=== PATIENT | female | born 2005 | race Caucasian/White ===

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

== ENCOUNTER 2024-04-18 11:00 | Emergency (ER) | payer OTHER, SELFPAY ==
[2024-04-18 12:05] VITALS: BP 132/80; PULSE 126; RESP 18; TEMP 36.7; O2SAT 98
--- NOTE | 2024-04-18 13:15 | ED.HA ---
HPI - Headache General Chief Complaint: Headache <Sary Segundo PA-C - Last Filed: 04/18/24 13:20> Stated Complaint: headache <Sary Segundo PA-C - Last Filed: 04/18/24 13:20> Time Seen by Provider: 04/18/24 13:15 <Sary Segundo PA-C - Last Filed: 04/18/24 13:20> Focused HPI: Patient is a 18-year-old female who presents the ED with report of a migraine headache. Patient reports she woke up this morning with a slight headache, which has progressed throughout the day into a migraine. She does have history of migraines which have been similar in the past. States pain is mostly frontal currently. She reports she began vomiting today and has been unable to keep down any food or drink which prompted her to come in to be seen. She attempted to take Tylenol and ibuprofen today, but does not think she was able to keep these down. Denies dizziness, lightheadedness, vision changes, neck pain, fevers. GENERAL: Well-appearing, well-nourished, and in no acute distress. HEAD: Normocephalic, atraumatic. CHEST: Clear to auscultation. ?No respiratory distress. HEART: Regular rate and rhythm.? NEURO: ?Alert and oriented x3. Patient screened in triage and initial orders placed.? ?Additional care and disposition to be based upon?diagnostic testing and treatment. <Sary Segundo PA-C - Last Filed: 04/18/24 13:20> Source: patient <Sary Segundo PA-C - Last Filed: 04/18/24 13:20> Mode of arrival: ambulatory <Sary Segundo PA-C - Last Filed: 04/18/24 13:20> Limitations: no limitations <AZEB Navarro Last Filed: 04/18/24 13:20> History of Present Illness HPI Narrative: Agree with HPI <Jimy Sousa MD - Last Filed: 04/18/24 16:32> Related Data Allergies/Adverse Reactions: Allergies Allergy/AdvReac Type Severity Reaction Status Date / Time No Known Allergies Allergy Verified 04/18/24 12:08 <Sary Segunod PA-C - Last Filed: 04/18/24 13:20> Review of Systems Review of Systems: All systems reviewed & are unremarkable except as noted in HPI and below <Jimy Sousa MD - Last Filed: 04/18/24 16:32> Constitutional: Constitutional: Reports no additional constitutional complaints <Jimy Sousa MD - Last Filed: 04/18/24 16:32> Eyes: Eyes: Reports photophobia <Jimy Sousa MD - Last Filed: 04/18/24 16:32> Cardiovascular: Cardiovascular: Reports no additional cardiovascular complaints <Jimy Sousa MD - Last Filed: 04/18/24 16:32> Respiratory: Respiratory: Reports no additional respiratory complaints <Jimy Sousa MD - Last Filed: 04/18/24 16:32> Neurologic: Denies confusion, Reports headache(s), Denies focal weakness and Denies numbness <Jimy Sousa MD - Last Filed: 04/18/24 16:32> PMFSH Past Medical History Medical History: Medical History (Updated 04/18/24 @ 16:31 by Jimy Sousa MD) Family planning, Depo-Provera contraception monitoring/administration <Sary Segundo PA-C - Last Filed: 04/18/24 13:20> Surgical History Surgical History: Surgical History Portis teeth removed <Sary Segundo PA-C - Last Filed: 04/18/24 13:20> Social History Social History: Social History (Updated 01/02/23 @ 14:18 by Shawnee Newman MA) Smoking status: Never smoker Second hand tobacco smoke exposure: No Alcohol intake: never Substance use: never Substance use type: does not use Living arrangements: with family Occupation/Education: student Gender identity (if verbalized by the patient): Female Sexual Orientation (if Verbalized by the Patient): Straight or Heterosexual <AZEB Navarro Last Filed: 04/18/24 13:20> Exam Narrative: GENERAL: Well-appearing, well-nourished, and in no acute distress. HEAD: Normocephalic, atraumatic. EYES: PERRL and EOMI. ENT:
[2024-04-18] MEDS: diphenhydrAMINE HCl INJ 50 MG/ML VIAL 25 MG IV PUSH (14:48)
[2024-04-18] MEDS: ACETAMINOPHEN 500 MG TABLET 1000 MG PO (14:48)
[2024-04-18] MEDS: METOCLOPRAMIDE HCL INJ 10 MG/2 ML VIAL IV PUSH (14:49)
[2024-04-18] MEDS: KETOROLAC 30 MG/ML VIAL (*BKC) IV PUSH (14:49)
[2024-04-18] MEDS: SODIUM CHLORIDE 0.9% IV 1,000 ML 999 ML IV CONT (14:50)
[2024-04-18 17:10] VITALS: BP 125/70; PULSE 119; RESP 16; TEMP 37.1; O2SAT 100
== END 2024-04-18 17:14 | disposition home or self-care (01) ==
PROVIDERS: Emergency Provider Emergency Medicine; PCP Family Medicine
DX: G43.909 Migraine, unspecified, not intractable, without status migrainosus (principal)
CPT/HCPCS: 96361; 96374; 96375; 99284; A9270; J1200; J1885; J2765; J7030

== ENCOUNTER 2024-11-19 14:03 | Outpatient (CLI) | payer MEDICAID, SELFPAY ==
[2024-11-19 14:30] LABS: Basophils Percent Auto 0.5 % (0.2-1.2); Eosinophils Absolute Auto 0.2 K/mm3 (0-0.3); Eosinophils Percent Auto 3.6 % (0-4.4); Hematocrit 35.3 % (37.0-47.0); Hemoglobin 11.5 g/dL (12.0-15.0); Immature Granulocyte Absolute 0.01 K/mm3 (0.00-0.031); Immature Granulocyte Percent A 0.2 % (0-0.5); Lymphocytes Absolute Auto 1.41 K/mm3 (0.9-3.2); Lymphocytes Percent Auto 24.1 % (18.3-44.2); Mean Corpuscular HGB Conc 32.6 g/dl (32-36); Mean Corpuscular Hemoglobin 27.8 pg (26-34); Mean Corpuscular Volume 85.5 fl (80-100); Mean Platelet Volume 9.9 fl (7.4-10.4); Monocytes Absolute Auto 0.5 K/mm3 (0.1-0.6); Monocytes Percent Auto 7.9 % (2.6-8.5); Neutrophils Absolute Auto 3.7 K/mm3 (1.3-6.7); Neutrophils Percent Auto 63.7 % (45.5-73.1); Platelet Count Result 281 k/mm3 (150-375); Red Blood Count 4.13 M/mm3 (4.2-5.4); Red Cell Distribution Width 14.4 % (11.5-14.5); White Blood Count 5.9 K/mm3 (4.5-10.0)
[2024-11-19 15:17] LABS: Hepatitis B Surface Antigen Negative (Negative); Rubella IgG Antibody 71.2 IU/ML
--- OUTSIDE RECORDS SUMMARY | 2024-11-19 15:17 | XMS_ITS | Clinical Summary ---
Author Organization [facility] [address] Address [address] [place] [address] Care Team Providers Care Sprinkler Repair Technician Name Role Phone Faisal Serrano MD Primary Care Provider [phone] Germaine Miller MD Unavailable Allergies Active Allergy Reactions Criticality Noted Date Comments Banana Other (See comments) Low 04/04/2023 Itching tongue [place] Other (See comments) Low 04/04/2023 Itching tongue Medications etonogestrel/eth inyl estradiol (ELURYNG VAG) 11/13/2021 Activ e buPROPion (WELLBUTRIN) 100 mg tabletIndication s:Moderate episode of recurrent major depressive disorder (HCC) Take 1 tablet (100 mg total) by mouth 2 (two) times a day 60 tablet 3 09/28/2023 Active Active Problems Problem Noted Date Diagnosed Date Tonsillolith 04/04/2023 Encounter for medical examination to establish c are 04/04/2023 Assessment & Plan (04/04/2023 10:17 AM CDT): A(n) initial well visit to establish care has been performed today. Jennifer Staley is not up to date on screening tests. She is in need of Cholesterol screening. She is not up to date on needed preventative vaccinations; She is in need of Tdap/Td. We discussed healthy lifestyle habits, educational material has been given. Medications reviewed, changes documented as per the medical record and discussed with patient along with risks vs benefits. Return in 1 month Seasonal allergies 04/04/2023 Recurrent major depression 04/04/2023 Blood in stool, adeola 03/07/2018 Seborrhea 03/07/2018 Headache 11/06/2012 Overview (05/30/2023): Hypopigmentation 03/05/2012 Immunizations Immunization Administration Dates Next Due DTaP 03/31/2009, 5,01/14/2004,11/01,2003 H1N1 All Forms 09/13/2009 HPV, Quadrivalent 11/13/2013,05/15/2013,03/11/20 13 Hep A, Pediatric 04/01/2009,04/24/2007 Hep B, Adolescent or Pediatric 04/14/2004,2003,2003 HiB 10/14/2004, 4,2003,09/07 Hib (PRP-T) 10/14/2004, 4,2003,09/07 IPV 04/01/2009, 4,2003,09/07 Influenza LAIV (Nasal) 09/11/2014 Influenza, Live, Intranasal, Quadrivalent 09/11/2014 Influenza, Quadrivalent, [place] Culture-based MDCK, Preservative Free, Antibiotic Free, Intramuscular 09/17/2017 Influenza, Unspecified 04/04/2023(Deferr ed: Patient Refused),08/27/2022(Deferred: Patient Refused),08/27/2021(Deferred: Patient Refused),08/02/2010,05/10/2009, 008,07/03/2007,08/07/2006 MMR 04/01/2009,07/15/2004 Meningococcal MCV4P (Menactra) 03/19/2020,2014 Pneumococcal Conjugate 7-Valent 10/14/19 05,07/15/2004,2003,09/07 Tdap 09/11/2014 Varicella 04/01/2009,07/15/2004 Surgical History Surgery Date Site/Laterality Comments WISDOM TOOTH EXTRACTION Medical History Medical History Date Comments Anxiety Depression 03/01/2023 Migraines 2015 Tonsillolith 04/04/2023 Family History Medical History Relation Name Comments Alcohol abuse Father Logan Staley Heart attack Father Logan Staley Hypertension Father Logan Staley Alcohol abuse Father's Brother Paul Staley Alcohol abuse Maternal Grandfather Lito Berwick Hypertension Maternal Grandmother Elsa Berwick Alcohol abuse Mother's Brother Mervin [place]wick Alcohol abuse Paternal Grandfather Paul Staley Cancer Paternal Grandfather Paul [place] Cancer Paternal Grandmother Vilma Gomez Asthma Sister 2 Alaina Newmanharvinder Relation Name Status Comments Father Logan Staley Father's Brother Paul Staley Maternal Grandfather Lito Berwick Maternal Grandmother Elsa Berwick Mother Alive Mother's Brother Mervin [place]wick Paternal Grandfather Paul Staley Paternal Grandmother Vilma Gomez Sister 1 Alive Sister 2 Alaina Newmanharvinder Social History Tobacco Use Types Packs/Day Years Used Date Smoking Tobacco: Never Smokeless Tobacco: Never Tobacco Cessation:Counseling Given: Not Answered AUDIT-C Answer Date Recorded Q1: How often do you have a drink containing alcohol? Never 10/04/2023 Q2: How many drinks containi ng alcohol do you have on a typical day when you are drinking? Patient does not drink Q3: How often do you have si x or more drinks on one occasion? 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 Not on file Not on file Not on file student Not on file Not on file Not on file Obstetrics History Last Filed Vital Signs Vital Sign Reading Time Taken Comments Blood Pressure 110/72 05/02/2024 2:29 PM CDT Pulse 103 05/02/2024 2:37 PM CDT Temperature 37.3 C (99.1 F) 05/02/2024 2:29 PM CDT Respiratory Rate 18 05/02/2024 2:29 PM CDT Oxygen Saturation 98% 05/02/2024 2:29 PM CDT Inhaled Oxygen Concentration - - Weight 52.2 kg (115 lb) 05/02/2024 2:29 PM CDT Height 157.5 cm (5' 2 ) 05/02/2024 2:29 PM CDT Body Mass Index 21.03 05/02/2024 2:29 PM CDT Plan of Treatment Health Maintenance Due Date Last Done Comments Cervical Cancer Screening 2003 Hepatitis C Screening 2003 Meningococcal B Vaccine (1 o f 2 - Standard) 2019 Regular Well Visit/Exam 18-64 04/04/2024 04/04/2023 Covid-19 Vaccine (2023-2 5 season) 2024 01/20/2022, 02/05/2021, 01/15/2021 Influenza Vaccine (#1) 2024 8, 09/11/2014, 09/11/2014, Additional history exists DTaP/Tdap/Td Vaccine (7 - Td or Tdap) 09/11/2024 09/11/2014, 03/31/2009, 10/14/2004, Additional history exists Depression Screening 10/04/2024 10/04/2023, 07/05/2023, 04/04/2023, Additional history exists Hepatitis B Screening Completed 04/14/2004 , 2003, 2003 Pneumococcal vaccine <65 Completed 005, 07/15/2004, 2003, Additional history exists Varicella Vaccines Completed 04/01/2009, 07/15/2004 HPV Vaccines Completed 11/13/2013, 04/27, 03/11/2013 Meningococcal Vaccine Completed 03/19/2020, 015 Chlamydia and Gonorrhea (GC/ CT) Screening Discontinued 07/21/2023 Procedures Procedure Name Priority Date/Time Associated Diagnosis Comments N. GONORRHOEAE/C. TRACHOMATIS AMPLIFICATION Routine 07/21/2023 11:28 AM MIDDLE SCHOOL TEACHER Urinary tract infection with hematuria, site unspecified from Last 3 Months or Most Recently Relevant to Health Maintenance Results * N. gonorrhoeae/C. trachomatis Amplification Urine (07/21/2023 11:28 AM MIDDLE SCHOOL TEACHER) C. trachomatis Not Detected YULISSA PALMER Comment:Testing performed by : [facility], [address] [place]., [address] N. gonorrhoeae Not Detected YULISSA PALMER Comment: Interpretive Data This assay detects Chlamydia trachomatis and Neisseria gonorrhoeae by nucleic acid amplification testing (NAAT). This assay has been cleared by the [place] Food and Drug administration. The performance characteristics of this test have been verified by the [facility] Molecular Infectious Disease laboratory. The performance characteristics of this test have not been evaluated in individuals less than 14 years of age. Current Interpretive Data was last revised on 2023. Testing performed by: [facility], [address] [place]., [address] Urine (None) 07/21/2023 11:2 8 AM MIDDLE SCHOOL TEACHER 07/23/2023 9:13 AM MIDDLE SCHOOL TEACHER us Sue Negron NP LAB MICROBIOLOGY - GENERAL ORD ERABLES Final Result YULISSA PALMER [id number] Department [place] [address] from Last 3 Months or Most Recently Relevant to Health Maintenance Insurance [facility] STUDENT RESOURCES Care Teams Sprinkler Repair Technician Relationship Specialty Start Date End Date Faisal Serrano MD [address] [facility] [address] [place], [place] [id number] PCP - General Family Medicine 04/04/23 Germaine Miller MD [address] [place] [address] Obstetrics and Gynecology 04/04/23 Jena Elias, [facility] Psychologist 04/04/23
--- OUTSIDE RECORDS SUMMARY | 2024-11-19 15:17 | XMS_ITS | Clinical Summary ---
Author Organization [facility] Address [address] [place] [address] Care Team Providers Care Family Medicine Resident Name Role Phone Pippa Aparicio MD Primary Care Provider [phone] Source Comments [facility],non-owned Affiliates and Associated Physician Practices is amultiple site organization consisting of ambulatory clinics and hospital sitesin [place], [place], [place] and [place]. This disclosure is being madepursuant to the Care Everywhere program and may not contain all information available regarding this patient. Last updated 18.[facility] [place] Allergies Active Allergy Reactions Criticality Noted Date Comments Banana Itching 03/07/2018 Tongue tingles Medications * Be aware that medications may not be up to date on this document. Alwaysverify current medications with the patient. Medication Sig Dispensed Refills Start Date End Date Status ketoconazole (NIZORAL) 2 % shampoo Apply to affected area once daily 120 mL 3 03/19/2020 Active fluocinonide (LIDEX) 0.05 % solution Apply to affected area 2 times daily 60 mL 4 03/19/2020 Active Active Problems Problem Noted Date Diagnosed Date Seborrhea 03/07/2018 Blood in stool, adeola 03/07/2018 Headache 11/06/2012 Overview (07/04/2015): Hypopigmentation 03/05/2012 Resolved Problems Problem Noted Date Diagnosed Date Resolved Date Constipation 03/07/2018 04/04/2018 Immunizations Name Administration Dates Next Due DTaP VACCINE IM (6wk-6yrs) 03/31/2009,,01/14/2004,11/01,2003 HEP A PEDS 2 DOSE 04/01/2009,04/24/2007 HEP B VACCINE, PED/ADOL 04/14/2004,2003, HIB-PRP-T 4 DOSE 10/14/2004, 4,2003,09/07 Human Papilloma Virus Claudette valent Vaccine 11/13/2013,05/15/2013,03/11/2013 INFLUENZA A [id number] VACCINE 09/13/2009 INFLUENZA VACCINE 08/02/2010, 9,06/12/2008,07/03,08/07/2006 MOIZ VACCINE QUAD LAIV4 PF NASAL 09/11/2014 MENINGOCOCCAL CONJUGATE (MCV4P) 03/19/2020,09/11 MMR 04/01/2009,07/15/2004 PNEUMOCOCCAL PCV7 CONJ, PEDS 10/14/2004, 07/15/2004,2003,09/07 POLIO IPV 04/01/2009, 4,2003,09/07 TDAP (7yrs+) 09/11/2014 VARICELLA 04/01/2009,07/15/2004 Family History Medical History Relation Name Comments Other - Gastrointestinal Mother bow el obstruction CAD (Coronary Artery Disease) Sister SVT at Relation Name Status Comments Mother Sister Social History Tobacco Use Types Packs/Day Years Used Date Smoking Tobacco: Passive Smo ke Exposure - Never Smoker Smokeless Tobacco: Never Comments:Mom recently quit s moking Alcohol Use Standard Drinks/Week Comments Not Asked 0 (1 standard drink = 0.6 oz pur e alcohol) Sex and Gender Information Value Date Recorded Sex Assigned at Not on file Gender Identity Not on file Sexual Orientation Not on file Last Filed Vital Signs Vital Sign Reading Time Taken Comments Blood Pressure 117/72 03/19/2020 9:08 AM CDT Pulse 76 03/19/2020 9:08 AM CDT Temperature 36.4 C (97.5 F) 03/19/2020 9:08 AM CDT Respiratory Rate - - Oxygen Saturation - - Inhaled Oxygen Concentration - - Weight 48 kg (105 lb 12.8 oz) 03/19/2020 9:08 AM CDT Height 158.1 cm (5' 2.25 ) 03/19/2020 9:08 AM CD T Body Mass Index 19.2 03/19/2020 9:08 AM CDT Plan of Treatment Health Maintenance Due Date Last Done Comments PAP SMEAR 2003 HIV SCREENING 2018 CHLAMYDIA/GONORRHEA SCREENING 2019 MENINGOCOCCAL (Group B) VACC INE SHARED DECISION-MAKING (1 of 2 - Standard) 2019 HEPATITIS C SCREENING 07/09/2021 COVID-19 VACCINE (1 - 2023-2 5 season) 2024 INFLUENZA VACCINE (#1) 2024 5, 08/02/2010, 09/13/2009, Additional history exists DEPRESSION SCREENING 08/27/2024 03/19/2020 DTAP/TDAP/TD VACCINES (7 - T d or Tdap) 09/11/2024 09/11/2014, 03/31/2009, 10/14/2004, Additional history exists ZOSTER VACCINE (1 of 2) 2053 HEPATITIS B VACCINE Completed 04/14/2004, 2003, 2003 HIB VACCINE Completed 10/14/2004, 12/26, 2003, Additional history exists PNEUMOCOCCAL VACCINE Completed 10/14/2004, 07/15/2004, 2003, Additional history exists HPV VACCINE Completed 11/13/2013, 04/27, 03/11/2013 MENINGOCOCCAL GROUPS A/C/Y/W VACCINE Completed 03/19/2020, 09/11/2014 Goals Goal Patient Goal Type Associated Problems Recent Progress Patient-Stated? Author [facility] Lifestyle: Use safety retraint in car Lifestyle On track( 020 9:09 AM CDT) No Elsa Be RN Care Teams Family Medicine Resident Relationship Specialty Start Date End Date Pippa Aparicio MD PCP - General Pediatrics 03/07/18
--- OUTSIDE RECORDS SUMMARY | 2024-11-19 15:17 | XMS_ITS | Referral Summary ---
Author Organization [facility] [address] Address [address] [place] [address] Care Team Providers Care Director Of Maternity Services Name Role Phone Faisal Serrano MD Primary Care Provider [phone] Germaine Miller MD Unavailable [phone] Allergies Active Allergy Reactions Criticality Noted Date Comments Banana Other (See comments) Low 04/04/2023 Itching tongue [place] Other (See comments) Low 04/04/2023 Itching tongue [...] 7-Valent 10/14/19 05,07/15/2004,2003,09/07 Tdap 09/11/2014 Varicella 04/01/2009,07/15/2004 Social History Tobacco Use Types Packs/Day Years [...] 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 GONORRHOEAE/C. TRACHOMATIS AMPLIFICATION Routine 07/21/2023 11:28 AM MEDICAL FRONT DESK SPECIALIST Urinary tract infection with hematuria, site unspecified from Last 3 Months or Most Recently Relevant to Health Maintenance Results * N. gonorrhoeae/C. trachomatis Amplification Urine (07/21/2023 11:28 AM MEDICAL FRONT DESK SPECIALIST) C. trachomatis Not Detected YULISSA PALMER Comment:Testing performed by : [facility], [address] [place]., [address] N. gonorrhoeae Not Detected YULISSA PALMER Comment: Interpretive Data This assay detects Chlamydia trachomatis and Neisseria gonorrhoeae by nucleic acid amplification testing (NAAT). This assay has been cleared by the [place] Food and Drug administration. The performance characteristics of this test have been verified by the [facility] Molecular Infectious Disease laboratory. The performance characteristics of this test have not been evaluated in individuals less than 14 years of age. Current Interpretive Data was last revised on 2023. Testing performed by: [facility], [address] [place]., [address] Urine (None) 07/21/2023 11:2 8 AM MEDICAL FRONT DESK SPECIALIST 07/23/2023 9:13 AM MEDICAL FRONT DESK SPECIALIST Sue Negron NP LAB MICROBIOLOGY - GENERAL ORD ERABLES Final Result YULISSA PALMER [id number] Department [place] [address] from Last 3 Months or Most Recently Relevant to Health Maintenance Insurance [facility] STUDENT RES[employer] [facility] HMO/PPO Address: [facility] [id number] [place] [address] Care Teams Director Of Maternity Services Relationship Specialty Start Date End Date Faisal Serrano MD [address] [facility] [address] [place] [address] PCP - General Family Medicine 04/04/23 Germaine Miller MD [address] [place], [place] [id number] Obstetrics and Gynecology 04/04/23 Jena Elias, [facility] Psychologist 04/04/23
[2024-11-19 15:26] LABS: HIV 1/2 Ab P24 Ag Result Negative (Negative)
[2024-11-19 15:32] LABS: Syphilis IgG/IgM Antibody Negative (Negative)
[2024-11-20 07:18] LABS: CMV IgG Antibody <0.60 U/mL
== END 2024-11-19 14:04 | disposition home or self-care (01) ==
LOC: ANHLAB 14:04
PROVIDERS: PCP Family Medicine; Visit Provider Obstetrics & Gynecology
DX: Z34.90 Encounter for supervision of normal pregnancy, unspecified, unspecified trimester (principal); Z3A.00 Weeks of gestation of pregnancy not specified
CPT/HCPCS: 36415; 84702; 85025; 86593; 86644; 86703; 86747; 86762; 86787; 86850; 86900; 86901; 87086; 87340; G0432

== ENCOUNTER 2025-04-13 16:49 | Outpatient (CLI) | payer OTHER, SELFPAY ==
--- OUTSIDE RECORDS SUMMARY | 2025-04-13 16:54 | XMS_ITS | Clinical Summary ---
Author Organization [facility] Address [address] [place] [address] Care Team Providers Care Motel Front Desk Attendant Name Role Phone Pippa Aparicio MD Primary Care Provider [phone] Source Comments [facility],non-owned Affiliates and Associated Physician Practices is amultiple site organization consisting of ambulatory clinics and hospital sitesin [place], [place], [place] and [place]. This disclosure is being madepursuant to the Care Everywhere program and may not contain all information available regarding this patient. Last updated 18.[facility] Allergies Active Allergy Reactions Criticality Noted Date Comments Banana Itching 03/07/2018 Tongue tingles Medications * Be aware that medications may not be up to date on this document. Alwaysverify current medications with the patient. ketoconazole (NIZORAL) 2 % shampoo Apply to [...] Date Resolved Date Constipation 03/07/2018 04/04/2018 Immunizations Immunization Administration Dates Next Due DTaP VACCINE IM (6wk-6yrs) 03/31/2009,,01/14/2004,11/01,2003 HEP A PEDS 2 DOSE 04/01/2009,04/24/2007 HEP B VACCINE, PED/ADOL 04/14/2004,2003, HIB-PRP-T 4 DOSE 10/14/2004, 4,2003,09/07 Human Papilloma Virus Claudette valent Vaccine 11/13/2013,05/15/2013,03/11/2013 INFLUENZA A [id number] VACCINE 09/13/2009 INFLUENZA VACCINE 08/02/2010, 9,06/12/2008,07/03,08/07/2006 MOIZ VACCINE QUAD LAIV4 PF NASAL 09/11/2014 MENINGOCOCCAL ACWY (MCV4P) VAC IM 03/19/2020, MMR 04/01/2009,07/15/2004 PNEUMOCOCCAL PCV7 CONJ, PEDS 10/14/2004, [...] drink = 0.6 oz pur e alcohol) Comments No Sex and Gender Information Value Date Recorded Sex Assigned at Not on file Legal Sex Female 1:49 PM TRAINING DEVELOPMENT MANAGER Gender Identity Not on file Sexual Orientation [...] 9:08 AM CDT Height 158.1 cm (5' 2.25) 03/19/2020 9:08 AM CD T Body Mass Index 19.2 03/19/2020 9:08 AM CDT Plan of Treatment Health Maintenance Due Date Last Done Comments HIV SCREENING 2018 CHLAMYDIA/GONORRHEA SCREENING 2019 MENINGOCOCCAL (Group B) VACC INE SHARED DECISION-MAKING (1 of 2 - Standard) 2019 HEPATITIS C SCREENING 07/09/2021 COVID-19 VACCINE (1 - 2023-2 5 season) 2024 PAP SMEAR 2024 DEPRESSION SCREENING 08/27/2024 03/19/2020 DTAP/TDAP/TD VACCINES (7 - T d or Tdap) 09/11/2024 09/11/2014, 03/31/2009, 10/14/2004, Additional history exists INFLUENZA VACCINE (#1) 2025 5, 08/02/2010, 09/13/2009, Additional history exists ZOSTER VACCINE (1 of [...] 9:09 AM CDT) No Elsa Be RN Insurance [facility] Care Teams Motel Front Desk Attendant Relationship Specialty Start Date End Date Pippa Aparicio MD PCP - General Pediatrics 03/07/18
--- OUTSIDE RECORDS SUMMARY | 2025-04-13 16:54 | XMS_ITS | Clinical Summary ---
Author Organization [facility] [address] Address [address] [place] [address] Care Team Providers Care Property Underwriter Name Role Phone Faisal Serrano MD Primary Care Provider [phone] Germaine Miller MD Unavailable [phone] Allergies Active Allergy Reactions Criticality Noted Date Comments Banana Other (See comments) Low 04/04/2023 Itching tongue [place] Other (See comments) Low 04/04/2023 Itching tongue [...] Paul Staley Alcohol abuse Maternal Grandfather Lito [place] Hypertension Maternal Grandmother Elsa [place] Alcohol abuse Mother's Brother Mervin [place] Alcohol abuse Paternal Grandfather Paul Staley Cancer Paternal Grandfather Paul [place] Cancer Paternal Grandmother Vilma Gomez Asthma Sister 2 Alaina Newmanharvinder Relation Name Status Comments Father Logan Staley Father's Brother Paul Staley Maternal Grandfather Lito [place] Maternal Grandmother Elsa [place] Mother Alive Mother's Brother Mervin [place] Paternal Grandfather Paul Staley Paternal Grandmother Vilma [...] 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 Not on [...] 2:29 PM CDT Height 157.5 cm (5' 2) 05/02/2024 2:29 PM CDT Body Mass Index 21.03 05/02/2024 2:29 PM CDT Plan of Treatment Health Maintenance Due Date Last Done Comments Cervical Cancer Screening 2003 Hepatitis C Screening 2003 Meningococcal B Vaccine (1 o f 2 - Standard) 2019 Regular Well Visit/Exam 18-64 04/04/2024 04/04/2023 Covid-19 Vaccine (4 - 2023-2 5 season) 2024 01/20/2022, 02/05/2021, 01/15/2021 DTaP/Tdap/Td Vaccine (7 - Td or Tdap) 09/11/2024 09/11/2014, 03/31/2009, 10/14/2004, Additional history exists Depression Screening 10/04/2024 10/04/2023, 07/05/2023, 04/04/2023, Additional history exists Influenza Vaccine (#1) 2025 8, 09/11/2014, 09/11/2014, Additional history exists Hepatitis B Screening Completed 04/14/2004 , 2003, 2003 Pneumococcal vaccine <65 Completed 005, 07/15/2004, 2003, Additional history exists Varicella Vaccines Completed 04/01/2009, 07/15/2004 HPV Vaccines Completed 11/13/2013, 04/27, 03/11/2013 Meningococcal Vaccine Completed 03/19/2020, 015 Chlamydia and Gonorrhea (GC/ CT) Screening Discontinued 07/21/2023 Procedures Procedure Name Priority Date/Time Associated Diagnosis Comments N. GONORRHOEAE/C. TRACHOMATIS AMPLIFICATION Routine 07/21/2023 11:28 AM FULL ROLL INSPECTOR Urinary tract infection with hematuria, site unspecified from Last 3 Months or Most Recently Relevant to Health Maintenance Results * N. gonorrhoeae/C. trachomatis Amplification Urine (07/21/2023 11:28 AM FULL ROLL INSPECTOR) C. trachomatis Not Detected YULISSA PALMER Comment:Testing performed by : [facility], [address] [place]., [address] N. gonorrhoeae Not Detected YULISSA PALMER Comment: Interpretive Data This assay detects Chlamydia trachomatis and Neisseria gonorrhoeae by nucleic acid amplification testing (NAAT). This assay has been cleared by the [place] Food and Drug administration. The performance characteristics of this test have been verified by the [facility] Molecular Infectious Disease laboratory. The performance characteristics of this test have not been evaluated in individuals less than 14 years of age. Current Interpretive Data was last revised on 2023. Testing performed by: [facility], [address] [place]., [address] Urine (None) 07/21/2023 11:2 8 AM FULL ROLL INSPECTOR 07/23/2023 9:13 AM FULL ROLL INSPECTOR us Sue Negron NP LAB MICROBIOLOGY - GENERAL ORD ERABLES Final Result YULISSA PALMER [id number] Department [place] [address] from Last 3 Months or Most Recently Relevant to Health Maintenance Insurance [facility] [employer] Care Teams Property Underwriter Relationship Specialty Start Date End Date Faisal Serrano MD [address] [facility] [address] [place], [place] [id number] PCP - General Family Medicine 04/04/23 Germaine Miller MD [address] [place] [address] Obstetrics and Gynecology 04/04/23 Jena Elias, [facility] Psychologist 04/04/23
[2025-04-13 18:20] LABS: Hematocrit 31.4 % (37.0-47.0); Hemoglobin 10.3 g/dL (12.0-15.0); Immature Granulocyte Percent A 0.3 % (0-0.5); Lymphocytes Absolute Auto 1.20 K/mm3 (0.9-3.2); Mean Corpuscular HGB Conc 32.8 g/dl (32-36); Mean Corpuscular Hemoglobin 29.6 pg (26-34); Mean Corpuscular Volume 90.2 fl (80-100); Nucleated Red Blood Cells Absolute Auto 0.000 K/mm3 (0.0-0.012); Nucleated Red Blood Cells Perc 0.0 % (0.0-0.2); Platelet Count Result 216 k/mm3 (150-375); Red Blood Count 3.48 M/mm3 (4.2-5.4); White Blood Count 7.8 K/mm3 (4.5-10.0)
[2025-04-13 18:37] LABS: Glucose 1 Hour PP 50gm Dose 131 mg/dL
[2025-04-13 19:10] LABS: HIV 1/2 Ab P24 Ag Result Negative (Negative)
[2025-04-13 23:01] LABS: Syphilis IgG/IgM Antibody Non-Reactive (Nonreactive)
== END 2025-04-13 16:50 | disposition home or self-care (01) ==
LOC: ANHLAB 16:52
PROVIDERS: Visit Provider Obstetrics & Gynecology
DX: Z34.90 Encounter for supervision of normal pregnancy, unspecified, unspecified trimester (principal); Z3A.00 Weeks of gestation of pregnancy not specified
CPT/HCPCS: 36415; 82947; 85025; 86593; 86703; G0432

== ENCOUNTER 2025-07-08 10:40 | Inpatient (IN) | payer OTHER, SELFPAY ==
[2025-07-08] VITALS (153 sets, daily range): BP systolic 79–156; BP diastolic 47–100; PULSE 78–260; TEMP 36.6–36.8; O2SAT 98–100; BMI 27.3
[2025-07-08 12:33] LABS: Hematocrit 32.9 % (37.0-47.0); Hemoglobin 10.7 g/dL (12.0-15.0); Immature Granulocyte Percent A 0.4 % (0-0.5); Lymphocytes Absolute Auto 1.10 K/mm3 (0.9-3.2); Mean Corpuscular HGB Conc 32.5 g/dl (32-36); Mean Corpuscular Hemoglobin 28.5 pg (26-34); Mean Corpuscular Volume 87.7 fl (80-100); Nucleated Red Blood Cells Absolute Auto 0.000 K/mm3 (0.0-0.012); Nucleated Red Blood Cells Perc 0.0 % (0.0-0.2); Platelet Count Result 200 k/mm3 (150-375); Red Blood Count 3.75 M/mm3 (4.2-5.4); White Blood Count 10.1 K/mm3 (4.5-10.0)
--- NOTE | 2025-07-08 13:12 | P.HP_ITS ---
H&P: HPI History of Present Illness Date/Time: 07/08/25 13:12 Chief Complaint: contractions Narrative: Jennifer is a 19yo @ 40.4 who presented to L&D with painful contractions. She was found to be 2.5cm but heart rate tracing was also noticable for minimal variability with occasional late decelerations. Her is complicated by: - depression; wellbutrin Review of Systems Constitutional: Constitutional: Denies chills, Denies fever(s) and Denies headache(s) Eyes: Eyes: Denies change in vision ENT: Denies headache(s) Cardiovascular: Cardiovascular: Denies chest pain and Denies dyspnea Respiratory: Respiratory: Denies dyspnea Genitourinary: Genitourinary: Denies abnormal vaginal bleeding and Denies vaginal discharge Neurologic: Denies headache(s) Psychiatric: Psychiatric: Denies anxiety and Denies depression [facility] Past Medical History Medical History Family planning, Depo-Provera contraception monitoring/administration Surgical History Surgical History [place] teeth removed Family History Family History Father Acute myocardial infarction Social History Social History Smoking status: Never smoker Second hand tobacco smoke exposure: No Alcohol intake: never Substance use: never Substance use type: does not use Do You Feel Safe in your Home?: Yes Lack of Transportation: No Lack of Food: Never True Current Housing: I Have Housing Concerned About Future Housing: No Difficulty Paying Gas/Electric Bills: No Difficulty Paying for Meds: No Currently Unemployed: No Education: High School Diploma/GED Difficulty w/ Childcare or Family Care: No Living arrangements: with family Occupation/Education: student Gender identity (if verbalized by the patient): Female Sexual Orientation (if Verbalized by the Patient): Straight or Heterosexual Spiritual care concerns: No Meds Home Medications and Allergies Home Medications ?Medication ?Instructions ?Recorded ?Confirmed ?Type docosahexaenoic acid 200 mg mg PO 11/18/24 07/02/25 Hi story capsule ( DHA) ondansetron 4 mg disintegrating 4 mg PO Q6H PRN nausea and 11/18/24 07/02/25 Rx tablet vomiting #30 tabs ferrous sulfate 325 mg (65 mg 325 mg PO DAILY 04/30/25 07/02/25 History iron) tablet (Feosol) psyllium husk 0.4 gram capsule 0.4 g PO DAILY 04/30/25 07/02/25 History (Daily Fiber) bupropion HCl 300 mg 24 hr tablet, 300 mg PO QAM #90 t abs 05/29/25 07/02/25 Rx extended release Allergies Allergy/AdvReac Type Severity Reaction Status Date / Time No Known Allergies Allergy Verified 07/02/25 10:51 Vital Signs Vital Signs - 24 hr 07/08/25 12:00 07/08/25 12:15 07/08/25 12:30 Pulse Rate 128 H 118 H 115 H Blood Pressure 143/84 H 131/80 142/83 H 07/08/25 12:45 07/08/25 13:00 Pulse Rate 126 H 119 H Blood Pressure 145/88 H 140/80 Exam Const: General: cooperative, healthy appearing and no acute distress Orientation/consciousness: patient oriented x3 Resp: Effort & Inspection: normal respiratory effort Cardio: Rate: regular rate GI: GI Palp: No abdominal tenderness : Other: FHT's: 150's/ mod guille/ + accels/ no decels now; has had occasional lates - cat 2 TOCO: ctxs q5min Cervix:4/70/-3 Membranes: AROM, clear 1325 Presentation: cephalic Skin: General skin exam: normal color Neuro: General: patient oriented x3 Extrem: General: normal to inspection Psych: Appearance: grossly normal Affect: normal affect Attitude: cooperative H&P: Results Labs Labs: Short CBC 07/08/25 Range/Units 12:24 WBC 10.1 H (4.5-10.0) K/mm3 Hgb 10.7 L (12.0-15.0) g/dL Hct 32.9 L (37.0-47.0) % Plt Count 200 (150-375) k/mm3 Assessment and Plan Assessment and plan (1) heart deceleration: Status: Acute Plan - Admit for augmentation; risks and benefits discussed - AROM, clear @ 1325 - Low dose pitocin per protocol if no change in 2 hours - Continuous monitoring - GBS neg - Anesthesia consult PRN pain
--- OUTSIDE RECORDS SUMMARY | 2025-07-08 13:14 | XMS_ITS | Clinical Summary ---
Author Organization [facility] Address [address] [place] [address] Care Team Providers Care Hand Tool Filer Name Role Phone Pippa Aparicio MD Primary Care Provider [phone] Source Comments [facility],non-owned Affiliates and Associated Physician Practices is amultiple site organization consisting of ambulatory clinics and hospital sitesin [place], [place], [place] and [place]. This disclosure is being madepursuant to the Care Everywhere program and may not contain all information available regarding this patient. 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
--- OUTSIDE RECORDS SUMMARY | 2025-07-08 13:14 | XMS_ITS | Clinical Summary ---
Author Organization [facility] [address] Address [address] [place] [address] Care Team Providers Care Pharmacists Name Role Phone Faisal Serrano MD Primary Care Provider [phone] Germaine Miller MD Unavailable [phone] Allergies Active Allergy Reactions Criticality Noted Date Comments Banana Other (See comments) Low 04/04/2023 Itching tongue [place] Other (See comments) Low 04/04/2023 Itching tongue [...] Paul Staley Alcohol abuse Maternal Grandfather Lito [place] Hypertension Maternal Grandmother Elsa [place] Alcohol abuse Mother's Brother Mervin [place] Alcohol abuse Paternal Grandfather Paul Staley Cancer Paternal Grandfather Paul [place] Cancer Paternal Grandmother Vilma Gomez Asthma Sister 2 Alaina Newmanharvinder Relation Name Status Comments Father Logan Staley Father's Brother Palu Staley Maternal Grandfather Lito [place] Maternal Grandmother Elsa [place] Mother Alive Mother's Brother Mervin [place] Paternal Grandfather Paul Staley Paternal Grandmother Vilma [...] 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 TRACHOMATIS AMPLIFICATION Routine 07/21/2023 11:28 AM SHIPPING POINT INSPECTOR Urinary tract infection with hematuria, site unspecified from Last 3 Months or Most Recently Relevant to Health Maintenance Results * N. gonorrhoeae/C. trachomatis Amplification Urine (07/21/2023 11:28 AM SHIPPING POINT INSPECTOR) C. trachomatis Not Detected YULISSA PALMER Comment:Testing performed by : [facility], [address] [place]., [address] N. gonorrhoeae Not Detected YULISSA PALMER Comment: Interpretive Data This assay detects Chlamydia trachomatis and Neisseria gonorrhoeae by nucleic acid amplification testing (NAAT). This assay has been cleared by the [place] Food and Drug administration. The performance characteristics of this test have been verified by the [facility] Molecular Infectious Disease laboratory. The performance characteristics of this test have not been evaluated in individuals less than 14 years of age. Current Interpretive Data was last revised on 2023. Testing performed by: [facility], [address] [place]., [address] Urine (None) 07/21/2023 11:2 8 AM SHIPPING POINT INSPECTOR 07/23/2023 9:13 AM SHIPPING POINT INSPECTOR us Sue Negron NP LAB MICROBIOLOGY - GENERAL ORD ERABLES Final Result YULISSA PALMER [id number] Department [place] [address] from Last 3 Months or Most Recently Relevant to Health Maintenance Insurance [facility] ST[employer]ENT [employer] Care Teams Pharmacists Relationship Specialty Start Date End Date Faisal Serrano MD [address] [facility] [address] [place], [place] [phone] PCP - General Family Medicine 04/04/23 Germaine Miller MD [address] [place] [address] Obstetrics and Gynecology 04/04/23 Jena Elias, [facility] Psychologist 04/04/23
[2025-07-08 13:49] LABS: Syphilis IgG/IgM Antibody Non-Reactive (Nonreactive)
[2025-07-08] MEDS: LACTATED RINGERS 1,000 ML 125 ML IV CONT ×3 (15:50→23:36)
--- NOTE | 2025-07-08 15:55 | LDADM ---
This patient, Jennifer Staley, was admitted to Labor/Delivery/Recovery 101 on 07/08/25 at 10:40. Plans for labor, pain management and were discussed with patient. Patient/family oriented to hospital policies and general routines including ID bracelet, bed and alarms, visiting hours, pain management, procedures, bathroom and other care routines, personal items, smoking policy, room service/diet and guest tray routines, infant security routines, and visiting hours. Patient/Family are encouraged to report perceived risks to care and to ask questions if they do not understand what they are told or what they should do. See OBIX for further documentation.
[2025-07-08] MEDS: CALCIUM CARBONATE (TUMS) 500 MG (200 MG ELEMENTAL) PO (16:16)
--- NOTE | 2025-07-08 16:25 | P.PNAN_ITS ---
Anes - Eval Pre Procedure Procedure: labor pain management Date/Time: 07/08/25 16:25 Surgeon: Heidi Miller Preop Diagnosis: pain during labor Pre Op Diagnosis: Labor Patient Data Age: 19 Gender: F Height: 1.57 m Weight: 68 kg Last Vital Signs Pulse 116 H 07/08/25 16:15 BP 118/83 07/08/25 16:15 O2 Del Method Room Air 07/08/25 15:55 Allergies Allergy/AdvReac Type Severity Reaction Status Date / Time No Known Allergies Allergy Verified 07/08/25 15:56 Home Medications ?Medication ?Instructions ?Recorded ?Confirmed ?Type docosahexaenoic acid 200 mg mg PO 11/18/24 07/02/25 Hi story capsule ( DHA) ondansetron 4 mg disintegrating 4 mg PO Q6H PRN nausea and 11/18/24 07/02/25 Rx tablet vomiting #30 tabs ferrous sulfate 325 mg (65 mg 325 mg PO DAILY 04/30/25 07/08/25 History iron) tablet (Feosol) psyllium husk 0.4 gram capsule 0.4 g PO DAILY 04/30/25 07/08/25 History (Daily Fiber) bupropion HCl 300 mg 24 hr tablet, 300 mg PO QAM #90 t abs 05/29/25 07/08/25 Rx extended release Laboratory Tests 07/08/25 12:24 WBC 10.1 H K/mm3 (4.5-10.0) RBC 3.75 L M/mm3 (4.2-5.4) Hgb 10.7 L g/dL (12.0-15.0) Hct 32.9 L % (37.0-47.0) MCV 87.7 fl (80-100) MCH 28.5 pg (26-34) MCHC 32.5 g/dl (32-36) RDW 13.2 % (11.5-14.5) Plt Count 200 k/mm3 (150-375) MPV 10.3 fl (7.4-10.4) Immature Gran % (Auto) 0.4 % (0-0.5) Neut % (Auto) 80.7 H % (45.5-73.1) Lymph % (Auto) 10.9 L % (18.3-44.2) [place] % (Auto) 6.6 % (2.6-8.5) Eos % (Auto) 1.2 % (0-4.4) Baso % (Auto) 0.2 % (0.2-1.2) Lymph # (Auto) 1.10 K/mm3 (0.9-3.2) [place] # (Auto) 0.7 H K/mm3 (0.1-0.6) Eos # (Auto) 0.1 K/mm3 (0-0.3) Baso # (Auto) 0.0 K/mm3 (0.0-0.1) Abs Immat Gran (auto) 0.04 H K/mm3 (0.00-0.031) Absolute Neuts (auto) 8.2 H K/mm3 (1.3-6.7) Absolute Nucleated RBC 0.000 K/mm3 (0.0-0.012) Nucleated RBC % 0.0 % (0.0-0.2) Syphilis IgG/IgM Ab Non-reactive (Nonreactive) Blood Type A Positive Antibody Screen Negative Patient hx anesthesia problems: none Family hx anesthesia problems: none Results Review: All pre-operative results and documents have been reviewed as part of the pre- operative evaluation. [facility] Past Medical History Medical History Family planning, Depo-Provera contraception monitoring/administration Surgical History Surgical History [place] teeth removed Family History Family History Father Acute myocardial infarction Social History Social History Smoking status: Never smoker Second hand tobacco smoke exposure: No Alcohol intake: never Substance use: never Substance use type: does not use Do You Feel Safe in your Home?: Yes Lack of Transportation: No Lack of Food: Never True Current Housing: I Have Housing Concerned About Future Housing: No Difficulty Paying Gas/Electric Bills: No Difficulty Paying for Meds: No Currently Unemployed: No Education: High School Diploma/GED Difficulty w/ Childcare or Family Care: No Living arrangements: with family Occupation/Education: student Gender identity (if verbalized by the patient): Female Sexual Orientation (if Verbalized by the Patient): Straight or Heterosexual Spiritual care concerns: No Exam Day of Procedure 07/08/25 16:25
[2025-07-08] MEDS: OXYTOCIN 30 UNITS/NS 500 ML 30 UNITS/500 ML BAG 6 UNITS IV CONT (17:25)
--- NOTE | 2025-07-08 18:06 | PM.OBPNLAB ---
Pain Control Date/time seen: 07/08/25 18:06 Pain control: epidural Pelvic Exam Dilation (cm): 5 Effacement (%): 70 station: -3 Amniotic membrane status: Ruptured Contractions Monitor mode: External Contraction frequency: 4 Contraction pattern: Regular Status status: Category l Assessment and Plan Pitocin rate (mU/min): 6 Assessment: induction ongoing Plan: continuous present management Comments: - she has had minimal cervical change; pitocin just started after epidural placement
[2025-07-08] MEDS: ONDANSETRON INJ 4 MG/2 ML VIAL IV PUSH (21:33)
[2025-07-09] VITALS (62 sets, daily range): BP systolic 116–169; BP diastolic 69–116; PULSE 73–186; RESP 16–18; TEMP 36.8–37.1; O2SAT 87–100
[2025-07-09] MEDS: METHYLERGONOVINE MALEATE 0.2 MG/ML VIAL IM (01:30)
--- NOTE | 2025-07-09 01:30 | S_PTH ---
PATIENT: Jennifer Staley LOC: ANHOB2 U#:[id number] AGE/SX: 19/F ROOM: 279 RE07/08/[address]: Germaine Miller MD : 2005 BED: 00 DIS: 07/11/2025 SPEC #: [id number] RECD: 07/09/25 09:55 STATUS: JAMAL REQ #: [id number] NELLY: 07/09/25 01:[address]: Germaine Miller DEPT: [facility] Surgical RECD BY: Rita Arce ENTERED: 07/09/25 09:55 SP TYPE: Surgical OTHR DR: UNKNOWN,DOCTOR Tissues: A - Placenta Procedures: Hematoxylin and Eosin Stain Gross and Microscopic Level 5
[2025-07-09] MEDS: OXYTOCIN 30 UNITS/NS 500 ML 30 UNITS/500 ML BAG 999 UNITS IV CONT (01:41)
--- NOTE | 2025-07-09 01:41 | PM.OBPRVD ---
OB - Vaginal Delivery Note Procedure Delivery date: 07/09/25 Events: Other ( heart decelerations) Delivery augmentation: Rupture of Membranes and Pitocin Delivery monitor: External FHT and External Uterine Route of delivery: Episiotomy description: None Laceration Description: Vaginal (bilateral) Delivery repair: vicryl Specimen: Yes (placenta) Quantitative Blood Loss (ml): 500 Anesthesia type: Epidural Disposition: Floor Complications: No immediate complications [place] Baby Date of : 07/09/25 Time of : 01:15 Gestational Age by Date: 40 (.5) Infant gender: Female presentation: vertex position: Right Occiput Anterior Placenta delivery description: Expressed Cord Vessel Description: 3 Vessels, Nuchal Cord, Reduced and Delayed Cord Clamping score one minute: 8 score five minutes: 9 Narrative: Jennifer progressed to complete dilation with strong desire to push. She pushed for approximately 3 hours with good maternal effort. She delivered the head over intact perineum. Nuchal cord was noted but loose and easily reduced. She easily delivered the infant's shoulders and body without complication. The female was immediately placed skin to skin and had spontaneous cry. Her mouth and nose were bulb suction. Delayed cord clamping was performed. The umbilical cord was doubly clamped and then cut by dad. A segment of the cord was collected for cord gases. The remaining cord blood was collected for typing. With Pitocin running and gentle downward traction on the cord, the placenta delivered without complication. Bimanual massage was performed and good uterine tone with minimal bleeding was noted. She was examined and 2 small bilateral vaginal lacerations near the hymen were noted. The lacerations were repaired in a a running fashion using 3-0 Vicryl and good reapproximation was noted. Brisk bleeding was noted and bimanual massage revealed significant clots in the uterus which were easily removed. Cytotec was placed rectally and my gloves were changed. Bimanual massage was continued and she continued to have periods of lower uterine segment atony. She was given Methergine IM and bimanual massage was continued until the bleeding was noted to be minimal. Sponge, lap, instrument, and needle counts were correct at the end the procedure. Mom and baby were left bonding in the birthing suite in stable condition.
[2025-07-09] MEDS: METOCLOPRAMIDE HCL INJ 10 MG/2 ML VIAL IV PUSH (02:11)
[2025-07-09] MEDS: OXYTOCIN 30 UNITS/NS 500 ML 30 UNITS/500 ML BAG 125 UNITS IV CONT (02:21)
[2025-07-09] MEDS: BENZOCAINE 20% AER SPR (*SP) 56 GM CAN 1 SPRAY TOPICAL (04:15)
[2025-07-09] MEDS: WITCH HAZEL 40 PADS 1 PAD TOPICAL (04:15)
[2025-07-09] MEDS: IBUPROFEN 600 MG TABLET PO ×2 (06:30→15:47)
[2025-07-09] MEDS: MULTIVIT/MIN/PREN/FOL AC/IRON TABLET 1 TAB PO (10:27)
[2025-07-09] MEDS: buPROPion HCL XL (24 HR) 150 MG TABCR 300 MG PO (10:27)
[2025-07-09] MEDS: DOCUSATE SODIUM 100 MG CAPSULE PO ×2 (10:27→15:47)
--- NOTE | 2025-07-09 16:57 | PC.NURSE ---
1500. Introductions were made, then consulted with patient to assess needs related to . Mom is currently using a nipple shield independently due to with difficulty latching. Mom is aware of the need for additional pumping while using a shield and plans to add that in. She is currently feeding her infant every 2-3 hours and responding to the infants feeding cues. Discussed with mother her plans to feed her infant and the experience so far. Encouraged mother to express any questions or concerns she has regarding feedings. Advised her to call out for a latch check or if she needs assistance waking or positioning baby. Reviewed the blue feeding worksheet for required output and feeding at least 8-12 times every 24 hours. Nipple shield provided to mother due to latching difficulties. Reviewed good handwashing, cleaning the nipple shield and the appropriate way to apply and use as a tool. Discussed with mom the nipple shield precautions, possible complications associated with the risks and benefits. Reviewed practicing with a nipple shield, then without and how to protect the milk supply and production. Resources provided for inpatient and outpatient services with the feeding sheet, mom/baby guide, and name/number written on the communication board. Mother voiced understanding of information and will call if there is a request for assistance. Reported to the Primary RN?
[2025-07-10 04:20] VITALS: BP 128/75; PULSE 100; RESP 15; TEMP 36.7; O2SAT 99
[2025-07-10] MEDS: IBUPROFEN 600 MG TABLET PO (04:25)
[2025-07-10 04:59] LABS: Hematocrit 25.6 % (37.0-47.0); Hemoglobin 8.2 g/dL (12.0-15.0); Mean Corpuscular HGB Conc 32.0 g/dl (32-36); Mean Corpuscular Hemoglobin 28.7 pg (26-34); Mean Corpuscular Volume 89.5 fl (80-100); Platelet Count Result 195 k/mm3 (150-375); Red Blood Count 2.86 M/mm3 (4.2-5.4); White Blood Count 11.1 K/mm3 (4.5-10.0)
[2025-07-10 05:13] LABS: Alanine Aminotransferase 19 U/L (6-35); Albumin Level 2.7 g/dL (3.5-5.1); Alkaline Phosphatase 132 U/L (38-126); Anion Gap 5 mmol/L (4-12); Aspartate Amino Transferase 39 U/L (14-36); Bilirubin,Total 0.2 mg/dL (0.2-1.3); Blood Urea Nitrogen 8 mg/dL (7-17); Calcium 8.0 mg/dL (8.4-10.2); Carbon Dioxide 21 mmol/L (22-30); Chloride 108 mmol/L (98-107); Estimated CRCL calculation 127 ml/min; Estimated Glomerular Filt Rate > 60; Glucose 82 mg/dL (65-110); Potassium 3.7 mmol/L (3.4-5.0); Sodium 134 mmol/L (137-145); Total Protein 5.4 g/dL (6.3-8.2)
[2025-07-10 08:05] VITALS: BP 127/74; PULSE 101; RESP 16; TEMP 36.9; O2SAT 99
[2025-07-10] MEDS: DOCUSATE SODIUM 100 MG CAPSULE PO ×2 (09:26→16:57)
[2025-07-10] MEDS: buPROPion HCL XL (24 HR) 150 MG TABCR 300 MG PO (09:26)
[2025-07-10] MEDS: MULTIVIT/MIN/PREN/FOL AC/IRON TABLET 1 TAB PO (09:26)
[2025-07-10] MEDS: IRON SUCROSE COMPLEX 400 MG, IRON SUCROSE COMPLEX 100 MG in SODIUM CHLORIDE 0.9% IV 250 ML 78.57 MG IVPB (09:28)
--- NOTE | 2025-07-10 12:56 | PM.OBPNVD ---
OB - PN: Subj Subjective Date/time seen: 07/10/25 13:00 Narrative: PPD#1 Jennifer reports doing well today. Her bleeding is community planning technician. Her pain is controlled. She is tolerating regular diet, voiding, passing gas, and ambulating without issues. She is breast feeding. OB - PN: Obj Data Labs 07/10/25 04:19 07/10/25 04:19 Labs: Laboratory Results - last 24 hr 07/10/25 04:19 WBC 11.1 H RBC 2.86 L Hgb 8.2 L Hct 25.6 L MCV 89.5 MCH 28.7 MCHC 32.0 RDW 13.4 Plt Count 195 MPV 10.2 Sodium 134 L Potassium 3.7 Chloride 108 H Carbon Dioxide 21 L Anion Gap 5 BUN 8 Creatinine 0.53 L Estim Creat Clear Calc 127 Estimated GFR > 60 Glucose 82 Calcium 8.0 L Total Bilirubin 0.2 AST 39 H ALT 19 Alkaline Phosphatase 132 H Total Protein 5.4 L Albumin 2.7 L OB - PN A/P Assessment and Plan (1) Normal vaginal delivery of first : Code(s): O80 - Encounter for full-term uncomplicated delivery Status: Acute Plan day: 1 Plan: routine care Comments: - PO pain meds - Regular diet - Ambulation and hydration encouraged - Continue putting baby to breast q2-3hr - Anemia noted; Venofer 500mg IV; repeat CBC in AM Time Spent With Patient Time: Total time spent is greater than 50% in coordination of care (as documented) at patient's floor/unit and/or counseling patient: Review of Systems Constitutional: Constitutional: Denies chills, Denies fever(s) and Denies headache(s) Eyes: Eyes: Denies change in vision ENT: Denies dizziness and Denies headache(s) Cardiovascular: Cardiovascular: Denies chest pain, Denies palpitations and Denies dyspnea Respiratory: Respiratory: Denies cough and Denies dyspnea Gastrointestinal: Gastrointestinal: Denies nausea and Denies vomiting Neurologic: Denies dizziness and Denies headache(s) Endocrine: Endocrine: Denies palpitations Exam Const: General: cooperative, comfortable and no acute distress Orientation/consciousness: patient oriented x3 Resp: Effort & Inspection: normal respiratory effort Auscultation: clear to auscultation bilaterally Cardio: Rate: regular rate GI: Inspection: non-distended GI Palp: No abdominal tenderness and Yes Soft to palpation Auscultation: normal bowel sounds : Other: fundus firm Skin: General skin exam: normal color Neuro: General: patient oriented x3 Extrem: General: normal to inspection Psych: Appearance: grossly normal Affect: normal affect Attitude: cooperative
[2025-07-10 23:30] VITALS: BP 132/90; PULSE 86; RESP 20; TEMP 36.9; O2SAT 100
--- NOTE | 2025-07-11 04:59 | PC.NURSE ---
This RN attempted patient's lab draw this morning at 0409 twice and was unsuccessful in lab collection. CBC re-ordered stat; lab notified.
[2025-07-11 06:54] LABS: Hematocrit 27.7 % (37.0-47.0); Hemoglobin 8.7 g/dL (12.0-15.0); Mean Corpuscular HGB Conc 31.4 g/dl (32-36); Mean Corpuscular Hemoglobin 28.6 pg (26-34); Mean Corpuscular Volume 91.1 fl (80-100); Platelet Count Result 199 k/mm3 (150-375); Red Blood Count 3.04 M/mm3 (4.2-5.4); White Blood Count 9.9 K/mm3 (4.5-10.0)
[2025-07-11] MEDS: buPROPion HCL XL (24 HR) 150 MG TABCR 300 MG PO (09:06)
[2025-07-11] MEDS: MULTIVIT/MIN/PREN/FOL AC/IRON TABLET 1 TAB PO (09:06)
[2025-07-11] MEDS: ACETAMINOPHEN 325 MG TABLET 650 MG PO (09:07)
--- NOTE | 2025-07-11 09:10 | P.DS_ITS ---
DS: Admitting Diagnosis Discharge Date 07/11/25 Admitting Diagnosis Early labor at term heart decelerations DS: Discharge Diagnosis Discharge Diagnosis (1) Normal vaginal delivery of first : Code(s): O80 - Encounter for full-term uncomplicated delivery Status: Acute OB - DS: Summary OB Procedures : Ultrasound OB Procedures Intrapartum: Spontaneous Vag Delivery OB Procedures: : None Peripartum Data Delivery Method: Natural Vaginal Laceration Description: Vaginal (bilateral) Episiotomy description: None complications: none [place] 1: Gender: Female Status at Discharge Functional status at discharge: independent ambulation Overall status at discharge: patient is back to baseline Time Spent with Patient Time attestation: Total time spent providing and/or coordinating discharge services: Exam Const: General: cooperative, healthy appearing, comfortable and no acute distress Orientation/consciousness: patient oriented x3 Resp: Effort & Inspection: normal respiratory effort Auscultation: clear to auscultation bilaterally Cardio: Rate: regular rate GI: Inspection: non-distended GI Palp: No abdominal tenderness and Yes Soft to palpation Auscultation: normal bowel sounds : Other: fundus firm Skin: General skin exam: normal color Neuro: General: patient oriented x3 Extrem: General: normal to inspection Psych: Appearance: grossly normal Affect: normal affect Attitude: cooperative DS: Data Data Completed and Pending Completed studies during hospitalization: Pending at discharge 07/09/25 01:30 Surgical [PTH] Routine Labs on day of discharge: Labs from last 24 hours 07/10/25 04:19 WBC 11.1 H RBC 2.86 L Hgb 8.2 L Hct 25.6 L MCV 89.5 MCH 28.7 MCHC 32.0 RDW 13.4 Plt Count 195 MPV 10.2 Sodium 134 L Potassium 3.7 Chloride 108 H Carbon Dioxide 21 L Anion Gap 5 BUN 8 Creatinine 0.53 L Estim Creat Clear Calc 127 Estimated GFR > 60 Glucose 82 Calcium 8.0 L Total Bilirubin 0.2 AST 39 H ALT 19 Alkaline Phosphatase 132 H Total Protein 5.4 L Albumin 2.7 L Discharge Plan Discharge Attending physician on discharge: Germaine Miller Discharging Clinician: Germaine Miller Anticipated Discharge Date/Time: 07/11/25 12:00 Patient Disposition: Home Activity: may shower and pelvic rest Diet: regular Patient Instructions: Antibiotic Form Patient Language: Portuguese Stand Alone Forms: General Discharge Information Follow-up/Referrals: Germaine Miller MD [Physician, SOFTWARE DEVELOPMENT COORDINATOR] - 4 Weeks Discharge Medications: New acetaminophen 325 mg Tablet 650 mg PO Q6H PRN (Reason: Mild Pain (1-3) Or Headache) Qty: 60 0RF docusate sodium 100 mg Capsule 100 mg PO BID PRN (Reason: Constipation) Qty: 90 0RF ibuprofen 600 mg Tablet 600 mg PO Q6H PRN (Reason: Cramping) Qty: 40 0RF Continued ferrous sulfate [Feosol] 325 mg (65 mg iron) tablet 325 mg PO DAILY psyllium husk [Daily Fiber] 0.4 gram capsule 0.4 g PO DAILY DHA 200 mg capsule PO ondansetron 4 mg tablet,disintegrating 4 mg PO Q6H PRN (Reason: nausea and vomiting) Qty: 30 2RF bupropion HCl 300 mg tablet extended release 24 hr 300 mg PO QAM Qty: 90 1RF Date of admission: 07/08/25 10:40 Primary Care Provider: UNKNOWN,DOCTOR Admitting Provider: Germaine Miller Attending physician on admission: Germaine Miller Condition: Stable
[2025-07-11 10:52] VITALS: BP 139/91; PULSE 105; RESP 14; TEMP 36.9; O2SAT 99
--- NOTE | 2025-07-11 11:20 | PC.NURSE ---
Mother verbalizes she is able to independently latch with appropriate positioning and alignment. She has some nipple discomfort and is responsively . She is using a nipple shield sometimes and was educated on shield use by the previous CLC. Infant is currently meeting outcomes for weight, output, jaundice, blood sugar and feeding frequencies of 8-12 times in 24 hours. Mom feels like her milk is coming in today and her breasts are full and firm. She has a breast pump at home and declines a WIC referral. Services offered with phone number and reference to the mom/baby guide and blue feeding sheet. Reviewed required output minimums and consistency with breast stimulation. Mother declines any additional assistance or education at this time. Mother is encouraged to call for assistance if her infant doesn?t latch, pain with latching, questions or concerns. Mother voiced understanding of information shared along with the mom/baby guide for an additional resource. Reported to the Primary RN.
[2025-07-13 09:23] VITALS: BP 134/89; PULSE 103; RESP 20; TEMP 37.2; O2SAT 99
--- NOTE | 2025-07-13 09:46 | PC.NURSE ---
pt. showed me her left forearm where her IV had been, approx. [id number] area that is slightly red around the edge and pinkish in the middle, swollen with hardened area from insertion site to top of discolored area, states has been putting ice on it, feels sl. warmer than area around it, encouraged to keep using ice, to call her physician or go to urgent care or ED if area changes appearance or notices red streaks up arm, voices understanding
== END 2025-07-11 13:40 | disposition home or self-care (01) | DRG 560 ==
LOC: ANHLDR 11:45 → ANHOB2 07-09 04:29
PROVIDERS: Admitting Provider Obstetrics & Gynecology; Visit Provider Obstetrics & Gynecology
DX: O36.8330 Maternal care for abnormalities of the fetal heart rate or rhythm, third trimester, not applicable or unspecified (principal); Z37.0 Single live birth; Z3A.40 40 weeks gestation of pregnancy; F32.A Depression, unspecified; O99.344 Other mental disorders complicating childbirth; O62.2 Other uterine inertia; O71.4 Obstetric high vaginal laceration alone; O63.1 Prolonged second stage (of labor)
CPT/HCPCS: 36415; 80053; 85025; 85027; 86593; 86850; 86900; 86901; 88307; A9270; J1756; J2210; J2405; J2590; J2765; J2795; J7050; J7120